=== PATIENT | female | born 1955 | race Caucasian/White ===

== ENCOUNTER → 2018-05-14 | Outpatient (CLI) | payer BC ==
[~2018-05-14] MED LIST: ADULT LOW DOSE81 MG PO; ATIVAN1 MG PO; COZAAR 50 MG TA50 M1 PO; FLONASE 0.05%50 MCG NASAL; GAVISCON EXTRA355 ML PO; IMDUR 30 MG TAB30 M1 PO; LEVAQUIN 500 M500 M1 PO; LEVOTHYROXIN0.125 M1 PO; METHYLPREDNISO125 MG IV PUSH; METOPROLOL SUCC50 MG PO; NORCO 10-325 T1 EACH PO; PRILOSEC 10MG C10 MG PO; SYMBICORT160 MCG/4. INH; TENORMIN50 MG PO; VITAMIN D1000 UNI1 PO; XOPENEX HFA15 GM IH; ZYRTEC10 M4 PO
[2018-05-14 09:37] LABS: CREATININE 0.9 mg/dL (0.6-1.0)
== END ==
LOC: CAT 08:40
PROVIDERS: Nuclear Medicine Nuclear Cardiology
DX: I71.4 Abdominal aortic aneurysm, without rupture (principal); I71.2 Thoracic aortic aneurysm, without rupture; J44.9 Chronic obstructive pulmonary disease, unspecified

== ENCOUNTER → 2020-03-11 | Outpatient (CLI) | payer BC, OTHER | LOC: CAT 08:37 | PROVIDERS: ATTEND Nuclear Medicine Nuclear Cardiology | DX: Z01.818 Encounter for other preprocedural examination (principal); I71.4 Abdominal aortic aneurysm, without rupture; I71.2 Thoracic aortic aneurysm, without rupture; Z88.0 Allergy status to penicillin; Z88.5 Allergy status to narcotic agent; Z88.8 Allergy status to other drugs, medicaments and biological substances ==

== ENCOUNTER → 2020-03-11 | Outpatient (CLI) | payer BC, OTHER | LOC: SJCVCIMAG 07:50 | DX: I65.23 Occlusion and stenosis of bilateral carotid arteries (principal); I71.4 Abdominal aortic aneurysm, without rupture; I25.10 Atherosclerotic heart disease of native coronary artery without angina pectoris; I10 Essential (primary) hypertension; I73.9 Peripheral vascular disease, unspecified; I71.2 Thoracic aortic aneurysm, without rupture; E78.00 Pure hypercholesterolemia, unspecified; J44.9 Chronic obstructive pulmonary disease, unspecified; R91.1 Solitary pulmonary nodule; K21.9 Gastro-esophageal reflux disease without esophagitis; E03.9 Hypothyroidism, unspecified; I25.2 Old myocardial infarction; Z82.49 Family history of ischemic heart disease and other diseases of the circulatory system; Z87.891 Personal history of nicotine dependence; Z79.82 Long term (current) use of aspirin; Z79.899 Other long term (current) drug therapy ==

== ENCOUNTER → 2020-04-21 | Outpatient (CLI) | payer BC, OTHER | LOC: SJCVCIMAG 10:18 | PROVIDERS: ATTEND Internal Medicine Cardiovascular Disease | DX: I25.10 Atherosclerotic heart disease of native coronary artery without angina pectoris (principal); R06.00 Dyspnea, unspecified; I10 Essential (primary) hypertension; J44.9 Chronic obstructive pulmonary disease, unspecified; Z79.899 Other long term (current) drug therapy; Z87.891 Personal history of nicotine dependence ==

== ENCOUNTER 2020-12-17 00:07 | Inpatient (IN) | payer OTHER ==
[~2020-12-17] VITALS: Ht 165.1 cm; Wt 103.4 kg
--- NOTE | ~2020-12-17 | TEE ---
[facility] [place] [address] TRANSESOPHAGEAL ECHOCARDIOGRAM Name: LILLIE CUEVAS Room #: 215-P DIS IN M.R.#: [id number] Admission: 12/18/20 Attend Phys: Jarek Valle MD Discharge: 12/19/20 Date of : 59 Report #: [id number] THIS REPORT FOR: cc: FAM - Family physician unknown FAM - Family physician unknown Roberto Bains MD [facility] ~ APPROVED REPORT Study performed: 12/18/2020 09:31:04 EXAM: Comprehensive 2D, Doppler, and color-flow Echocardiogram Patient Location: Bedside Room #: 215 Status: on-call BSA: 2.09 HR: 58 bpm BP: 157/79 mmHg Rhythm: NSR Other Information Study Quality: Adequate Indications COPD CAD Hypertension/HDD HLD 2D Dimensions RVDd: 26.07 mm IVSd: 15.35 (7-11mm) LVOT Diam: 20.21 (18-24mm) LVDd: 50.14 mm PWd: 14.95 (7-11mm) Ascending Ao: 39.82 (22-36mm) LVDs: 36.26 (25-40mm) Aortic Root: 34.95 mm IVC: 12.00 mm Volumes Left Atrial Volume (Systole) Single Plane 4CH: 109.79 mL Single Plane 2CH: 90.85 mL LA ESV Index: 56.00 mL/m2 Aortic Valve AoV Peak Riky.: 1.38 m/s [facility] [address] [place] [address] TRANSESOPHAGEAL ECHOCARDIOGRAM Name: FAITHLILLIE L Room #: 215-P [facility] IN ..#: [id number] Admission: 12/18/20 Attend Phys: Jarek Valle MD Discharge: 12/19/20 Date of : 59 Report #: [id number] AO Peak Gr.: 7.66 mmHg LVOT Max P.36 mmHg LVOT Max V: 1.04 m/s RACHEL Vmax: 2.42 cm2 Mitral Valve E/A Ratio: 0.6 MV Decel. Time: 230.04 ms MV E Max Riky.: 0.64 m/s MV A Riky.: 1.12 m/s MV PHT: 66.71 ms IVRT: 183.39 ms Pulmonary Valve PV Peak Riky.: 0.88 m/s PV Peak Gr.: 3.12 mmHg Pulmonary Vein P Vein S: 0.45 m/s P Vein A: 0.27 m/s P Vein D: 0.28 m/s P Vein A Dur.: 155.7 msec P Vein S/D Ratio: 1.61 Tricuspid Valve RAP Estimate: 5.00 mmHg Left Ventricle The left ventricle is normal size. There is normal LV segmental wall motion. Moderate concentric left ventricular hypertrophy. The left ventricular systolic function is normal. The left ventricular ejection fraction is within the normal range. LVEF is 55-60%. Mild diastolic dysfunction Right Ventricle The right ventricle is normal size. The right ventricular systolic function is normal. Atria Left atrium is moderately dilated. The right atrium size is normal. Aortic Valve The aortic valve is normal in structure. Trace aortic regurgitation. There is no aortic valvular stenosis. Mitral Valve Mild mitral annular calcification Trace mitral regurgitation. No evidence of mitral valve stenosis. [facility] [address] [place] [address] TRANSESOPHAGEAL ECHOCARDIOGRAM Name: LILLEI CUEVAS Room #: 215-P [facility] IN .R.#: [id number] Admission: 12/18/20 Attend Phys: Jarek Valle MD Discharge: 12/19/20 Date of : 59 Report #: [id number] Tricuspid Valve The tricuspid valve is normal in structure. Trace tricuspid regurgitation. Unable to assess PA pressure. Pulmonic Valve The pulmonary valve is normal in structure. There is no pulmonic valvular regurgitation. Great Vessels The aortic root is normal in size. The ascending aorta is mildly dilated (4.0cm). IVC is normal in size and collapses >50% with inspiration. Pericardium There is no pericardial effusion. <Conclusion> The left ventricular systolic function is normal. There is normal LV segmental wall motion. LVEF is 55-60%. Mild diastolic dysfunction Left atrium is moderately dilated. The aortic valve is normal in structure. Trace aortic regurgitation, no stenosis. Mild mitral annular calcification. Trace mitral regurgitation. Unable to assess pulmonary artery pressure. The ascending aorta is mildly dilated (4.0cm). There is no pericardial effusion. By: [id number] Roberto Bains MD, FACC /INF
[2020-12-18 01:43] VITALS: BP 157/79
--- NOTE | 2020-12-18 04:22 | NUR ---
DIRECT ADMIT FROM [facility] ARRIVED AT 0138 VIA EMS TRANSPORT; AOX4/STEADY GAIT/SBA TO TOILET; C/O LOW-GRADE CHEST PAIN WITH NITRO PASTE TO RT UPPER CHEST; VSS; ADMISSION COMPLETED; SCDS IN PLACE; CONSULTS CALLED; WILL CONTINUE TO MONITOR AND FOLLOW POC.
[2020-12-18 05:16] LABS: CALCIUM 8.8 mg/dL (8.5-10.1); CREATININE 0.9 mg/dL (0.6-1.0); POTASSIUM 3.4 mmol/L (3.5-5.1)
[2020-12-18 05:22] LABS: CHOLESTEROL 289 mg/dL (<200); HDL CHOLESTEROL 30 mg/dL (>40); LDL CHOLESTEROL 187 mg/dL (<100); TC:HDL 9.6 Ratio (Not establshd); TRIGLYCERIDE 364 mg/dL (<150); VLDL 73 mg/dL (<40)
[2020-12-18 05:23] LABS: SERUM ASSESSMENT Clear
[2020-12-18 05:31] LABS: HEMATOCRIT 36.4 % (37.0-47.0); HEMOGLOBIN 11.9 gm/dL (12.0-15.0); MCH 26.9 pg (26.0-34.0); MCHC 32.7 g/dL (28.0-37.0); MCV 82.1 fL (80.0-100.0); RBC 4.43 mil/uL (4.20-5.00); RDW 15.4 % (10.5-14.5); WBC 6.7 thou/uL (4.0-11.0)
[2020-12-18 07:35] VITALS: BP 137/58
[2020-12-18 11:25] VITALS: BP 130/90; BP 138/90
[2020-12-18 15:30] VITALS: BP 144/69
--- NOTE | 2020-12-18 17:31 | NUR ---
ASSUMED CARE OF PT AT SHIFT CHANGE. ASSESSMENTS CHARTED. MEDS GIVEN PER DEC. PT A&XO4. RATED CHEST PAIN 2/10, DECLINE PAIN MEDS. SHOULDER XRAY NEG FOR FX/DISLOCATION. PLAN FOR DISCHARGE TOMORROW. WILL CONTINUE TO MONITOR FOR CHANGES AND FOLLOW POC.
[2020-12-18 20:45] VITALS: BP 142/64
[2020-12-19 03:55] VITALS: BP 180/118
[2020-12-19 04:00] VITALS: BP 151/60
[2020-12-19 04:07] LABS: ANION GAP 11 mmol/L (7-16); CHLORIDE 100 mmol/L (98-107); CO2 28 mmol/L (21-32); GLUCOSE 102 mg/dL (74-106); MAGNESIUM 2.1 mg/dL (1.8-2.4); POTASSIUM 3.2 mmol/L (3.5-5.1); SODIUM 139 mmol/L (136-145); TROPONIN-I <0.06 ng/mL (<0.06)
[2020-12-19 04:22] LABS: BUN 13 mg/dL (7-18)
[2020-12-19 05:36] LABS: GLYCOHEMOGLOBIN (HGB A1C) 6.1 % (4.8-5.6)
[2020-12-19 07:30] VITALS: BP 151/58
--- NOTE | 2020-12-19 08:18 | NUR ---
ASSESSMENTS CHARTED, MEDS CHARTED GIVEN. PATIENT C/O HEADACHE AND GAS PAINS IN UPPER CHEST. PATIENT RELEASED ONE TIME DOSE OF MYLANTA AND TYLENOL. PATIENT UP AT CHEPE IN ROOM. SR/SB ON TELEMETRY. PLAN OF CARE IS TO DISCHARGE TODAY.
[2020-12-19] MEDS ORDERED: COLACE 100 MG100 MG PO (10:06)
[2020-12-19] MEDS ORDERED: BENTYL 10 MG CA10 M1 PO (10:06)
[2020-12-19] MEDS ORDERED: BISOPROLOL FUMAR5 MG PO (10:06)
[2020-12-19] MEDS ORDERED: K-DUR 20 MEQ T20 MEQ PO (10:06)
[2020-12-19] MEDS ORDERED: ACETAMINOPHEN325 M1 PO (10:06)
[2020-12-19 11:23] VITALS: BP 151/58
[2020-12-19 11:30] VITALS: BP 146/89
--- NOTE | 2020-12-19 12:50 | NUR ---
ASSUMED CARE OF PT AT SHIFT CHANGE. ASSESSMENT CHARTED. MEDS GIVEN PER DEC. PT A&OX4, NO C/O PAIN, SOA OR DISTRESS. DISCHARGE ORDERS AND INSTRUCTIONS COMPLETE. TELE AND IV DC'D. PT WALKED TO ER ENTRANCE BY NURSING STAFF TO SON IN WAITING CAR.
--- NOTE | 2020-12-21 14:05 | 2DMMODE ---
[facility] [address] [address] 2 D/M-MODE ECHOCARDIOGRAM Name: LILLIE CUEVAS Stephania Room #: 215-P [facility] IN .R.#: [id number] Admission: 12/18/20 Attend Phys: Jarek Valle MD Discharge: 12/19/20 Date of : 59 Report #: [id number] THIS REPORT FOR: cc: FAM - Family physician unknown FAM - Family physician unknown Roberto Bains MD [facility] Ranjit Wisdom ~ Sex/Age : F/65Y Height/Weight : 165.1cm/103.4kg Patient Name : LILLIE CUEVAS Study Date : 2020-12-18 BSA : 2.09? Requesting Name : ECHO STANDARD W/O CONTRAST Date of : 1955 Request Doctor : RANJIT WISDOM Department : CARD --< Approved Report > Study performed: 12/18/2020 09:31:04 EXAM: Comprehensive 2D, Doppler, and color-flow Echocardiogram Patient Location: Bedside Room #: 215 Status: on-call BSA: 2.09 HR: 58 bpm BP: 157/79 mmHg Rhythm: NSR Other Information Study Quality: Adequate Indications COPD CAD Hypertension/HDD HLD 2D Dimensions RVDd: 26.07 mm IVSd: 15.35 (7~11mm) LVOT Diam: 20.21 (18~24mm) LVDd: 50.14 mm PWd: 14.95 (7~11mm) Ascending Ao: 39.82 (22~36mm) LVDs: 36.26 (25~40mm) Aortic Root: 34.95 mm IVC: 12.00 mm [facility] [address] [place] [address] 2 D/M-MODE ECHOCARDIOGRAM Name: LILLIE CUEVAS Room #: 215-P [facility].#: [id number] Admission: 12/18/20 Attend Phys: Jarek Valle MD Discharge: 12/19/20 Date of : 59 Report #: [id number] Volumes Left Atrial Volume (Systole) Single Plane 4CH: 109.79 mL Single Plane 2CH: 90.85 mL LA ESV Index: 56.00 mL/m2 Aortic Valve AoV Peak Riky.: 1.38 m/s AO Peak Gr.: 7.66 mmHg LVOT Max P.36 mmHg LVOT Max V: 1.04 m/s RACHEL Vmax: 2.42 cm2 Mitral Valve E/A Ratio: 0.6 MV Decel. Time: 230.04 ms MV E Max Riky.: 0.64 m/s MV A Riky.: 1.12 m/s MV PHT: 66.71 ms IVRT: 183.39 ms Pulmonary Valve PV Peak Riky.: 0.88 m/s PV Peak Gr.: 3.12 mmHg Pulmonary Vein P Vein S: 0.45 m/s P Vein A: 0.27 m/s P Vein D: 0.28 m/s P Vein A Dur.: 155.7 msec P Vein S/D Ratio: 1.61 Tricuspid Valve RAP Estimate: 5.00 mmHg Left Ventricle The left ventricle is normal size. There is normal LV segmental wall motion. Moderate concentric left ventricular hypertrophy. The left ventricular systolic function is normal. The left ventricular ejection fraction is within the normal range. LVEF is 55-60%. Mild diastolic dysfunction Right Ventricle The right ventricle is normal size. The right ventricular systolic function is normal. Atria Left atrium is moderately dilated. The right atrium size is normal. Aortic Valve The aortic valve is normal in structure. Trace aortic regurgitation. There is no [facility] [address] [place] [address] 2 D/M-MODE ECHOCARDIOGRAM Name: LILLIE CUEVAS Room #: 215-P [facility] IN [facility].#: [id number] Admission: 12/18/20 Attend Phys: Jarek Valle MD Discharge: 12/19/20 Date of : 59 Report #: [id number] aortic valvular stenosis. Mitral Valve Mild mitral annular calcification Trace mitral regurgitation. No evidence of mitral valve stenosis. Tricuspid Valve The tricuspid valve is normal in structure. Trace tricuspid regurgitation. Unable to assess PA pressure. Pulmonic Valve The pulmonary valve is normal in structure. There is no pulmonic valvular regurgitation. Great Vessels The aortic root is normal in size. The ascending aorta is mildly dilated (4.0cm). IVC is normal in size and collapses >50% with inspiration. Pericardium There is no pericardial effusion. <Conclusion> The left ventricular systolic function is normal. There is normal LV segmental wall motion. LVEF is 55-60%. Mild diastolic dysfunction Left atrium is moderately dilated. The aortic valve is normal in structure. Trace aortic regurgitation, no stenosis. Mild mitral annular calcification. Trace mitral regurgitation. Unable to assess pulmonary artery pressure. The ascending aorta is mildly dilated (4.0cm). There is no pericardial effusion. Electronically Approved : 12/20/2020 14:15:45 By: [id number] Roberto Bains MD, FACC /
== END 2020-12-19 12:22 | disposition home or self-care (01) | DRG 303 ==
LOC: 2N 00:07
PROVIDERS: Nurse Practitioner Family; ADMIT Internal Medicine; ATTEND Internal Medicine
DX: I25.110 Atherosclerotic heart disease of native coronary artery with unstable angina pectoris (principal); I16.0 Hypertensive urgency; E78.5 Hyperlipidemia, unspecified; J44.9 Chronic obstructive pulmonary disease, unspecified; I10 Essential (primary) hypertension; K21.9 Gastro-esophageal reflux disease without esophagitis; E03.9 Hypothyroidism, unspecified; E78.00 Pure hypercholesterolemia, unspecified; E66.9 Obesity, unspecified; I71.4 Abdominal aortic aneurysm, without rupture; F41.9 Anxiety disorder, unspecified; Z68.37 Body mass index [BMI] 37.0-37.9, adult; Z95.5 Presence of coronary angioplasty implant and graft; I25.2 Old myocardial infarction; Z88.5 Allergy status to narcotic agent; Z88.2 Allergy status to sulfonamides; Z88.8 Allergy status to other drugs, medicaments and biological substances; Z91.09 Other allergy status, other than to drugs and biological substances; Z79.82 Long term (current) use of aspirin; Z79.899 Other long term (current) drug therapy; Z90.49 Acquired absence of other specified parts of digestive tract; Z98.891 History of uterine scar from previous surgery; Z87.891 Personal history of nicotine dependence
CPT/HCPCS: 10797